=== PATIENT | female | born 1975 | race Caucasian/White ===

== ENCOUNTER 2017-07-10 09:51 | Emergency (ER) | payer SELFPAY ==
[2017-07-10 10:10] VITALS: BP 106/62
--- NOTE | 2017-07-10 11:48 | UC ---
Respiratory Complaint HPI - HPI Summary HPI Summary: HAD URI END OF MAY - COUGH, CONGESTION, FATIGUE. SX HAVE MOSTLY RESOLVED BUT PRODUCTIVE COUGH IS PERSISTENT. PT NOT SLEEPING WELL DUE TO COUGH. COUGHED ALL NIGHT LAST NIGHT AND THIS MORNING HAD LOWER STOMACH PAIN AND VOMITED. NO FEVER. - History of Current Complaint Chief Complaint: UCGeneralIllness Stated Complaint: COUGH Time Seen by Provider: 07/10/17 11:33 Hx Obtained From: Patient Hx Last Menstrual Period: Uterine ablation Onset/Duration: Gradual Onset, Lasting Weeks, Still Present Severity Initially: Moderate Severity Currently: Moderate Pain Intensity: 4 Pain Scale Used: 0-10 Numeric Character: Cough: Productive Aggravating Factors: Nothing Alleviating Factors: Nothing Associated Signs And Symptoms: Negative: Dyspnea, Fever, Pleuritic Chest Pain, Wheezing, URI - Allergies/Home Medications Allergies/Adverse Reactions: Allergies Allergy/AdvReac Type Severity Reaction Status Date / Time No Known Allergies Allergy Verified 07/10/17 10:10 Home Medications: Home Medications Sbgfjnzbjbwye-[id number]-Dlwri [VICKS DAYQUIL/NYQUIL COLD (Liquid)] 30 ml PO BEDTIME PRN 07/10/17 [History Confirmed 07/10/17] guaiFENesin ER TAB [Mucinex*] 30 ml PO Q4HR PRN 07/10/17 [History Confirmed 12/20] PMH/Surg Hx/FS Hx/Imm Hx Neurological History: Migraine - Surgical History Surgical History: None Surgery Procedure, Year, and Place: Uterine Ablasion - Family History Known Family History: Negative: Hypertension - Social History Alcohol Use: Occasionally Substance Use Type: None Smoking Status (MU): Former Smoker - Immunization History Most Recent Influenza Vaccination: Not UTD Review of Systems Constitutional: Negative ENT: Negative Respiratory: Cough Cardiovascular: Negative Gastrointestinal: Abdominal Pain Genitourinary: Negative All Other Systems Reviewed And Are Negative: Yes Physical Exam Triage Information Reviewed: Yes Appearance: Well-Appearing, No Pain Distress, Well-Nourished Vital Signs: Initial Vital Signs Temp 97.7 F 07/10/17 10:04 Pulse 95 07/10/17 10:04 Resp 16 07/10/17 10:04 BP 106/62 07/10/17 10:04 Pulse Ox 99 07/10/17 10:04 Vital Signs Reviewed: Yes Eyes: Positive: Conjunctiva Clear ENT: Positive: Hearing grossly normal, Pharynx normal, TMs normal Neck: Positive: Supple, Nontender, No Lymphadenopathy Respiratory Exam: Normal Cardiovascular Exam: Normal Abdomen Description: Positive: Nontender, Soft, Other: - NO SIGN OF APPENDICITIS ON EXAM. Negative: CVA Tenderness (R), CVA Tenderness (L), Distended, Guarding Bowel Sounds: Positive: Present Musculoskeletal: Positive: No Edema Neurological: Positive: Alert Psychological: Positive: Age Appropriate Behavior Skin: Negative: rashes UC Diagnostic Evaluation - Laboratory O2 Sat by Pulse Oximetry: 99 Respiratory Course/Dx - Differential Dx/Diagnosis Provider Diagnoses: BRONCHITIS/POST INFECTIOUS COUGH Discharge - Discharge Plan Condition: Stable Disposition: HOME Prescriptions: Azithromycin [Azithromycin 500 MG TAB] 500 mg PO DAILY #5 tab Patient Education Materials: Acute Bronchitis (ED) Referrals: No Primary Care Phys,NOPCP [Primary Care Provider] - Additional Instructions: YOUR COUGH MAY BE DUE TO A POST INFLAMMATORY STATE FROM YOUR RECENT ILLNESS. GIVEN THE PROLONGED NATURE OF YOUR SYMPTOMS WILL TREAT WITH ANTIBIOTICS. IF YOU DO NOT IMPROVE WITH TREATMENT SEEK FOLLOW-UP. Cough, non-specific: Coughing is the body's reaction to irritation in the bronchial tubes. Most patients with a new cough simply have a virus infection. However, a cough can be caused by allergies, inflammatory diseases, infection, or foreign matter in the lungs. For example, patients with hay fever-type allergies may have coughing as the only symptom. Patients with very mild asthma may not wheeze; they may simply cough. Some medicines make patients cough. Sometimes heart palpitation ("skip beats") can cause coughing. We try to identify and treat the underlying cause of the cough. Sometimes that's not possible at first. If the cough does not go away after a reasonable time, you will need further testing. You should avoid fumes, dust, and smoke (especially tobacco smoke). Don't exercise in very cold or in hot and dry conditions. (Warm up slowly as you begin exercising.) Bronchodilators (asthma medicine) are sometimes helpful. An expectorant medicine (for example guafenesin) might make the cough more comfortable. Antihistamines can help if the problem is allergy; if the problem is something else, they can dry the airway and make the cough worse. If the cough is new and very bothersome, cough-suppressant medicine may help. We try to avoid narcotic cough medicines with chronic coughs. Notify your doctor at once if sputum becomes thick, foul, or bloody, if you develop a fever or chest pain, or if you become short of breath. CALL THE NUMBER BELOW FOR ASSISTANCE IN ESTABLISHING WITH A PCP An additional resource available to assist in finding the appropriate physician for your health care needs is the [facility] ([facility]). You may contact them by calling [phone].
== END 2017-07-10 12:01 | disposition home or self-care (01) ==
LOC: UCEAST 09:51
DX: J40 Bronchitis, not specified as acute or chronic (principal); Z87.891 Personal history of nicotine dependence
CPT/HCPCS: 99212; G0463